=== PATIENT | female | born 1955 | race Caucasian/White ===

== ENCOUNTER 2025-06-08 09:14 | Outpatient (CLI) | payer MEDICARE ==
--- NOTE | 2025-06-08 12:27 | RADIOLOGY REPORT ---
CLINICAL INDICATION: L SHOULDER PAIN COMPARISON: None TECHNIQUE: Multiplanar, multisequence MRI of the left shoulder was performed without contrast. Contrast: None FINDINGS: Glenohumeral joint: There is no fracture or bone marrow edema. Alignment is maintained. There is f ocal chondral thinning in the superolateral humeral head with subchondral cyst noted. There is no j oint effusion or synovitis. Acromioclavicular joint: The acromioclavicular joint is narrowed with capsular hypertrophy. There is a type 1 acromion. Rotator cuff and bursae: There is full-thickness full width tear supraspinatus measuring 1.7 cm. Inf raspinatus tendinosis is present without tear. Subscapularis tendinosis is noted without tear. Teres minor tendon is intact. There is no regional muscle atrophy. There is fluid distention of the sub acromial subdeltoid bursa. Biceps tendon and glenoid labrum: The long head biceps tendon is located within the bicipital groove and intact. There is fluid in the tendon sheath. There is degeneration and tear of the anterior s uperior, direct superior and posterior superior glenoid labrum. IMPRESSION: 1. Full-thickness, full width supraspinatus tear. Infraspinatus tendinosis without tear. 2. Long head biceps tenosynovitis. 3. Acromioclavicular and glenohumeral joint osteoarthrosis. 4. 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
== END 2025-06-08 23:59 | disposition home or self-care (01) ==
LOC: MRI02 09:14
PROVIDERS: ATTEND Registered Nurse
DX: S43.432A Superior glenoid labrum lesion of left shoulder, initial encounter (principal); M75.122 Complete rotator cuff tear or rupture of left shoulder, not specified as traumatic; M19.012 Primary osteoarthritis, left shoulder; M65.812 Other synovitis and tenosynovitis, left shoulder; M25.812 Other specified joint disorders, left shoulder; M25.512 Pain in left shoulder; X58.XXXA Exposure to other specified factors, initial encounter; Y93.89 Activity, other specified; Y92.89 Other specified places as the place of occurrence of the external cause; Y99.8 Other external cause status
CPT/HCPCS: 73221